=== PATIENT | female | born 1955 | race African-American/Black ===

== ENCOUNTER 2020-04-20 08:27 | Emergency (ER) | payer MEDICARE ==
[2020-04-20] MEDS ORDERED: Sodium Chloride 0.9% 2.5 ML Syringe FLUSH PRN (08:35)
[2020-04-20] MEDS ORDERED: Sodium Chloride 0.9% 10 ML Syringe FLUSH PRN (08:35)
[2020-04-20] MEDS ORDERED: Aspirin 81 MG Tab.Chew PO ONE (08:37)
--- NOTE | 2020-04-20 08:43 | EDM.PDOC ---
ED HPI GENERAL MEDICAL PROBLEM - General Chief Complaint: Chest Pain Stated Complaint: chest pain Time Seen by Provider: 04/20/20 08:30 - History of Present Illness INITIAL COMMENTS - FREE TEXT/NARRATIVE: History of present illness: [] Is a 64-year-old woman reports chest pain. She said it severe and associated with shortness of breath. It got intermittently slightly better with an inhaler. Is been going on for 2 weeks. She has been bothered by chest pain and shortness of breath in the past. Her primary condition is a lung condition secondary to smoking. She still smokes. The patient's not diabetic but is treated for hypertension. She is not treated for cholesterol. The patient's chest pain is quite bothersome and intermittent. It gets better with inhaler. Exertion does not make it worse. Review of systems: As per history of present illness and below otherwise all systems reviewed and negative. Past medical history: As per history of present illness and as reviewed below otherwise noncontributory. Surgical history: As per history of present illness and as reviewed below otherwise noncontributory. Social history: No reported history of drug or alcohol abuse. Family history: As per history of present illness and as reviewed below otherwise noncontributory. Physical exam: Constitutional -is obese but otherwise well developed, well-nourished and in mild acute distress HEENT - normocephalic, no evidence of trauma - external nose and mouth normal - no mass in neck and no JVD - mucosae moist EYES - full EOM, PERRL, no icterus - no evidence of inflammation, injection, or drainage Respiratory -no respiratory distress, equal bilateral expansion, lungs clear to auscultation and no abnormal lung sounds. Space breath sounds in both bases. Cardiovascular - Regular Rhythm with S1 and S2 appreciated and no murmur, gallop or rub. GI - abdomen soft without distension or organomegaly - normal bowel sounds - no guard or rebound Musculoskeletal no gross deformity of long bones or joints - no tenderness, swelling or edema Neurologic - Alert and oriented times four - CN II-XII grossly intact - motor sensory and coordination symmetrically normal Psychiatric - appropriate mood and affect with normal thought content Hematologic - No petechiae or purpura - mucosa appropriate color and sclera not pale - normal nail bed color and refill Integument - no rash or evidence of trauma - normal turgor Diagnostics: [] Therapeutics: [] Impression: [] Plan: [] Definitive disposition and diagnosis as appropriate pending reevaluation and review of above. Chest Pain Score (Numeric/FACES): 7 - Related Data Allergies Allergy/AdvReac Type Severity Reaction Status Date / Time Penicillins Allergy Hives Verified 04/20/20 08:43 Home Meds: Home Meds Desvenlafaxine Succinate [Desvenlafaxine Succinate ER] 100 mg PO DAILY 04/20/20 [History] Esomeprazole Magnesium 40 mg PO DAILY 04/20/20 [History] Gabapentin [Neurontin] 600 mg PO TID 04/20/20 [History] Hydrocodone/Acetaminophen [Hydrocodone-Acetamin 10-325 mg] 1 tab PO QID PRN 04/20/20 [History] Irbesartan/Hydrochlorothiazide [Irbesartan-Hctz 300-12.5 mg Tb] 1 tab PO DAILY 04/20/20 [History] amLODIPine Besylate [Amlodipine Besylate] 10 mg PO DAILY 04/20/20 [History] busPIRone [Buspar] 10 mg PO DAILY 04/20/20 [History] estradioL [Estradiol] 1 mg PO DAILY 04/20/20 [History] hydrOXYzine HCL [Hydroxyzine HCl] 25 mg PO TID 04/20/20 [History] predniSONE [Prednisone] 60 mg PO DAILY #21 tablet 04/20/20 [Rx] ED ROS GENERAL - Review of Systems Review Of Systems: Comprehensive ROS is negative, except as noted in HPI. ED EXAM, GENERAL - Physical Exam Exam: See Below Free Text/Narrative:: My physical exam is in the HPI #1 Interpretation EKG Interpretation Comments: G performed at 8:28 AM shows a sinus rhythm with a heart rate of 93 QT of 469 QRS axis of 53 normal QRS with nonspecific lateral ST changes. LA interval is 160. These are minimal and there is no prior for comparison impression no acute injury there is no prior for comparison. Impression no acute injury Course - Vital Signs Text/Narrative:: 9:08 AM the patient's breathing better. She has no chest pain at this time. She is comfortable. She did get inhalation treatments given by her daughter before she arrived. My interpretation of the chest x-ray is that it is unremarkable. 1:16 AM patient still feels good. She has a nebulizer and medicine at home. She responded nicely to the treatments this morning and has had intermittent subacute chest pain associated with her shortness of breath with her bronchitis. Plan to discharge on steroids. Last Recorded V/S: Last Vital Signs Temp 36.4 C 04/20/20 08:35 Pulse 72 04/20/20 10:03 Resp 17 04/20/20 10:03 BP 131/90 04/20/20 10:03 Pulse Ox 94 L 04/20/20 10:03 - Orders/Labs/Meds Orders: Active Orders 24 hr Category Date Time Status EKG Documentation Completion [RC] AM Care 04/20/20 08:35 Active Sodium Chloride 0.9% [Saline Flush] Med 04/20/20 08:35 Active 10 ml FLUSH ASDIRECTED PRN Sodium Chloride 0.9% [Saline Flush] Med 04/20/20 08:35 Active 2.5 ml FLUSH ASDIRECTED PRN Saline Lock Insert [OM.PC] Stat Oth 04/20/20 08:35 Ordered Labs: Laboratory Tests 04/20/20 04/20/20 04/20/20 Range/Units 08:40 08:40 09:08 WBC 10.67 (4.0-11.0) K/uL RBC 4.68 (4.30-5.90) M/uL Hgb 14.5 (12.0-16.0) g/dL Hct 42.2 (36.0-46.0) % MCV 90.2 (80.0-98.0) fL MCH 31.0 (27.0-32.0) pg MCHC 34.4 (31.0-37.0) g/dL RDW Std Deviation 44.2 (28.0-62.0) fl RDW Coeff of Dian 13 (11.0-15.0) % Plt Count 416 H (150-400) K/uL MPV 8.80 (7.40-12.00) fL Neut % (Auto) 66.2 (48.0-80.0) % Lymph % (Auto) 25.9 (16.0-40.0) % Porter % (Auto) 6.3 (0.0-15.0) % Eos % (Auto) 1.2 (0.0-7.0) % Baso % (Auto) 0.4 (0.0-1.5) % Neut # (Auto) 7.1 H (1.4-5.7) K/uL Lymph # (Auto) 2.8 H (0.6-2.4) K/uL Porter # (Auto) 0.7 (0.0-0.8) K/uL Eos # (Auto) 0.1 (0.0-0.7) K/uL Baso # (Auto) 0.0 (0.0-0.1) K/uL Nucleated RBC % 0.0 /100WBC Nucleated RBCs # 0 K/uL Sodium 136 (136-145) mmol/L Potassium 3.6 (3.5-5.1) mmol/L Chloride 100 (98-107) mmol/L Carbon Dioxide 27.8 (21.0-32.0) mmol/L BUN 8 (7.0-18.0) mg/dL Creatinine 1.0 (0.6-1.0) mg/dL Est Cr Clr Drug Dosing 46.40 mL/min Estimated GFR (MDRD) > 60.0 ml/min Glucose 114 H (74-106) mg/dL Calcium 9.9 (8.5-10.1) mg/dL Total Bilirubin 0.4 (0.2-1.0) mg/dL AST 15 (15-37) IU/L ALT 18 (14-63) IU/L Alkaline Phosphatase 87 (46-116) U/L Troponin I < 0.050 (0.000-0.056) ng/mL Total Protein 8.0 (6.4-8.2) g/dL Albumin 3.8 (3.4-5.0) g/dL Globulin 4.2 H (2.6-4.0) g/dL Albumin/Globulin Ratio 0.9 (0.9-1.6) SARS-CoV-2 RNA (MARGARET) NEGATIVE (NEGATIVE) Departure - Departure Time of Disposition: 10:17 Disposition: Home, Self-Care 01 Condition: Good Clinical Impression: Acute bronchitis - Discharge Information Prescriptions: predniSONE [Prednisone] 60 mg PO DAILY #21 tablet Instructions: Acute Bronchitis, Adult, [id number] Referrals: Will Reese MD [Primary Care Provider] - Forms: ED Department Discharge Additional Inst[facility]: [facility] Care [address] [place] [id number] [facility] [address] [place] [id number] The following information is given to patients seen in the emergency department who are being discharged to home. This information is to outline your options for follow-up care. We provide all patients seen in our emergency department with a follow-up referral. The need for follow-up, as well as the timing and circumstances, are variable depending upon the specifics of your emergency department visit. If you don't have a primary care physician on staff, we will provide you with a referral. We always advise you to contact your personal physician following an emergency department visit to inform them of the circumstance of the visit and for follow-up with them and/or the need for any referrals to a consulting specialist. The emergency department will also refer you to a specialist when appropriate. This referral assures that you have the opportunity for follow-up care with a specialist. All of these measure are taken in an effort to provide you with optimal care, which includes your follow-up. Under all circumstances we always encourage you to contact your private physician who remains a resource for coordinating your care. When calling for follow-up care, please make the office aware that this follow-up is from your recent emergency room visit. If for any reason you are refused follow-up, please contact the [facility] Emergency Department at and asked to speak to the emergency department charge nurse. Sepsis Event Note (ED) - Evaluation Sepsis Screening Result: Possible Sepsis Risk - Focused Exam Vital Signs: Vital Signs Temp Pulse Resp BP Pulse Ox 04/20/20 10:03 72 17 131/90 94 L 04/20/20 09:33 78 18 136/86 94 L 04/20/20 09:03 74 121/84 95 04/20/20 08:48 81 17 121/88 94 L 04/20/20 08:35 36.4 C 94 24 H 143/83 H 98 - My Orders Last 24 Hours: My Active Orders 04/20/20 08:35 EKG Documentation Completion [RC] AM Sodium Chloride 0.9% [Saline Flush] 10 ml FLUSH ASDIRECTED PRN Sodium Chloride 0.9% [Saline Flush] 2.5 ml FLUSH ASDIRECTED PRN Saline Lock Insert [OM.PC] Stat - Assessment/Plan Last 24 Hours: My Active Orders 04/20/20 08:35 EKG Documentation Completion [RC] AM Sodium Chloride 0.9% [Saline Flush] 10 ml FLUSH ASDIRECTED PRN Sodium Chloride 0.9% [Saline Flush] 2.5 ml FLUSH ASDIRECTED PRN Saline Lock Insert [OM.PC] Stat
--- NOTE | 2020-04-20 09:03 | CR ---
INDICATION: Chest pain with dyspnea TECHNIQUE: Chest 1 view COMPARISON: None FINDINGS: Cardiovascular and mediastinum: Heart size and vasculature are normal in caliber and appearance. Lungs and pleural spaces: Lungs are clear. No sign of infiltrate or mass. No sign of pleural effusion. No pneumothorax. Bones and soft tissues: No significant findings. IMPRESSION: No acute or significant findings. Dictated by Domenic Kramer MD @ Apr 20 2020 9:02AM Signed by Dr. Domenic Kramer @ Apr 20 2020 9:03AM
[2020-04-20] MEDS ORDERED: predniSONE 20 MG Tab PO ONE (09:07)
[2020-04-20 09:28] LABS: BLOOD UREA NITROGEN,BUN 8 mg/dL (7.0-18.0); CARBON DIOXIDE,CO2 27.8 mmol/L (21.0-32.0); CHLORIDE,CL 100 mmol/L (98-107); GLUCOSE RANDOM 114 mg/dL (74-106); POTASSIUM,K 3.6 mmol/L (3.5-5.1); SODIUM,NA 136 mmol/L (136-145)
== END 2020-04-20 10:24 | disposition home or self-care (01) ==
LOC: MW.ED 08:27
DX: J20.9 Acute bronchitis, unspecified (principal); Z20.822 Contact with and (suspected) exposure to COVID-19; Z88.0 Allergy status to penicillin; Z79.899 Other long term (current) drug therapy
CPT/HCPCS: 36415; 71045; 80053; 84484; 85025; 93005; 99285; A9270; U0002; 93010; 99283

== ENCOUNTER 2020-07-08 10:36 | Emergency (ER) | payer MEDICARE ==
--- NOTE | 2020-07-08 10:51 | EDM.PDOC ---
ED HPI GENERAL MEDICAL PROBLEM - General Stated Complaint: TINGLING AND NUMBNESS IN BOTH ARMS AND NECK Time Seen by Provider: 07/08/20 10:43 Source of Information: Reports: Patient History Limitations: Reports: No Limitations - History of Present Illness INITIAL COMMENTS - FREE TEXT/NARRATIVE: HISTORY AND PHYSICAL: History of present illness: Patient is a 64-year-old female who presents to the emergency room with multiple complaints that have been intermittent and persistent over the past 3+ months. She states she has had some neck pain and stiffness which she describes as muscle spasms which is tight for her to turn her head side to side and up and down. She does have intermittent tingling sensation to bilateral hands which she believes is coming from her neck problem and/or chronic back pain. She also has had increased shortness of breath with productive cough, worse in the morning. She recently quit smoking, thinking this would help her symptoms. When she wakes up with the symptoms she does use her prescribed inhalers although this does help temporarily she feels by afternoon her shortness of breath has returned. She has been evaluated and worked up by her primary care provider Dr. Reese and in the emergency room on 04/20/2020. Patient denies any fever, chills, headache, change in vision, syncope or near syncope. Denies any chest pain or hemoptysis. Denies any urinary or fecal incontinence. Denies any one-sided weakness or loss of sensation. She denies any abdominal pain, nausea, vomiting, diarrhea, constipation or dysuria. Has not noted any blood in urine or stool. Patient has been eating and drinking appropriately. Patient has a past medical history of hypertension Review of systems: As per history of present illness and below otherwise all systems reviewed and negative. Past medical history: As per history of present illness and as reviewed below otherwise noncontributory. Surgical history: As per history of present illness and as reviewed below otherwise noncontributory. Social history: See social history for further information Family history: As per history of present illness and as reviewed below otherwise noncontributory. Physical exam: General: Well developed and well nourished. Alert and orientated x 3. Nontoxic in appearance and in no acute distress. Vital signs are stable and have been reviewed by me. Nursing notes were reviewed. HEENT: Atraumatic, normocephalic, pupils equal and reactive bilaterally, negative for conjunctival pallor or scleral icterus, mucous membranes moist, TMs normal bilaterally, throat clear, neck supple, nontender, trachea midline. No drooling or trismus noted. No meningeal signs/nuchal rigidity. No hot potato voice noted. Lungs: Clear to auscultation bilaterally. No wheezes, rales, or rhonchi. Chest nontender. Normal work of breathing, no accessory muscles used. Heart: S1S2, regular rate and rhythm without overt murmur, gallops, or rubs. No JVD. No peripheral edema Abdomen: Soft, nondistended, nontender. Normoactive bowel sounds. Negative for masses or costovertebral tenderness. Pelvis: Stable nontender. C-spine/Back: No pinpoint vertebral tenderness upon palpation. No crepitus, rebeca p-offs or obvious deformities. Muscle tension/tight to sternocleidomastoid and trapezius muscles bilaterally. Patient is ambulatory into the emergency room without difficulty or deficit. Able to rock back on heels and walk on toes. Denies any urinary or fecal incontinence. Denies any numbness or saddle paresthesia. No concerns of serious infection, fracture or cord compression, or cauda equina syndrome. Deep tendon reflexes brisk bilaterally. Skin: Intact, warm, dry. No lesions or rashes noted. Hematologic: No petechiae or purpra. Mucosa appropriate color and normal nail bed color and refill. Extremities: Atraumatic, moves all extremities per self without difficulty or deficits, negative for cords or calf pain. Neurovascular unremarkable. Neuro: Awake, alert, oriented. Cranial nerves II through XII unremarkable. Cerebellum unremarkable. Motor and sensory unremarkable throughout. Exam nonfocal. Psychiatric: Mood and affect are appropriate. Normal thought process. Answering questions appropriately. Notes: *This patient was seen and evaluated during the 2019 SARS-CoV-2 novel coronavirus pandemic period. Community viral transmission is ongoing at time of this encounter and the emergency department is operating under pandemic response procedures. Patient is a 64-year-old female who presents to the emergency room with complaints of paresthesia of the bilateral hands, muscular neck pain, shortness of breath and cough x3 months. She has been seen by her primary care provider Dr. Reese and in the emergency room with normal findings. During my physical exam the patient is tearful stating she is frustrated that she does not have answers for her symptoms. She does mention that "this could all be stress" and breaks down crying. I did reassure her that her physical exam is relatively unremarkable although I do appreciate her neck being very stiff and tight with exam and probably would benefit from a muscle relaxer. We will do a cardiac work-up and imaging of the cervical neck. Patient states her lumbar back pain is chronic and has had imaging and is being treated with gabapentin by her primary care provider. GCS 15, NIH 0. Patient does have a leukocytosis without source. Chest x-ray is unremarkable. CT of the cervical spine shows moderate severe degenerative changes of the cervical spine worse at C5-C6 and C6-C7 levels. It is recommended for MRI to characterize spinal canal impingement. There is no evidence of fracture. I have talked with the patient about today's findings, in addition to providing specific details for plan of care. Reassessment at the time of disposition demonstrates that the patient is in no acute distress. The patient is stable for discharge, counseling was provided and we discussed in great detail signs and symptoms that would prompt them to return to the Emergency Department. Medication, follow up and supportive care measures were reviewed and discussed. Voices understanding and is agreeable to plan of care. Denies any further questions or concerns at this time. Diagnostics: CBC, CMP, UA, chest x-ray, troponin, EKG, cervical spine CT Therapeutics: Toradol, Flexeril Prescription: Flexeril, Prednisone Impression: Muscle strain, neck Plan: 1. You were evaluated today on an emergent basis. Your CT of your cervical spine shows moderate severe degenerative changes of the cervical spine worse at C5-C6 and C6-C7 levels. It is recommended for MRI to characterize spinal canal impingement. Please follow up with Dr Reese to have this ordered/reviewed. 2. You can alternate Tylenol and ibuprofen as needed for pain and fever management. 3. We encourage you to follow up with your primary care provider and/or recommended specialist in the next few days for re-evaluation and further care/management. 4. If your symptoms should worsen, new symptoms develop or any of the signs and symptoms we discussed should arise please return to the emergency room or call 911 (if needed). Definitive disposition and diagnosis as appropriate pending reevaluation and review of above. Ribs/Shoulders Pain Score (Numeric/FACES): 8 - Related Data Allergies Allergy/AdvReac Type Severity Reaction Status Date / Time Penicillins Allergy Hives Verified 07/08/20 11:05 Home Meds: Home Meds Desvenlafaxine Succinate [Desvenlafaxine Succinate ER] 100 mg PO DAILY 04/20/20 [History] Esomeprazole Magnesium 40 mg PO DAILY 04/20/20 [History] Gabapentin [Neurontin] 600 mg PO TID 04/20/20 [History] Hydrocodone/Acetaminophen [Hydrocodone-Acetamin 10-325 mg] 1 tab PO QID PRN 04/20/20 [History] Irbesartan/Hydrochlorothiazide [Irbesartan-Hctz 300-12.5 mg Tb] 1 tab PO DAILY 04/20/20 [History] amLODIPine Besylate [Amlodipine Besylate] 10 mg PO DAILY 04/20/20 [History] busPIRone [Buspar] 10 mg PO DAILY 04/20/20 [History] estradioL [Estradiol] 1 mg PO DAILY 04/20/20 [History] hydrOXYzine HCL [Hydroxyzine HCl] 25 mg PO TID 04/20/20 [History] predniSONE [Prednisone] 60 mg PO DAILY #21 tablet 04/20/20 [Rx] Social & Family History - Family History Family Medical History: No Pertinent Family History ED ROS GENERAL - Review of Systems Review Of Systems: Comprehensive ROS is negative, except as noted in HPI. ED EXAM, GENERAL - Physical Exam Exam: See Below (See dictation) Course - Vital Signs Last Recorded V/S: Last Vital Signs Temp 97.6 F 07/08/20 11:05 Pulse 86 07/08/20 12:18 Resp 16 07/08/20 11:38 BP 117/70 07/08/20 12:18 Pulse Ox 95 07/08/20 12:18 - Orders/Labs/Meds Orders: Active Orders 24 hr Category Date Time Status EKG Documentation Completion [RC] STAT Care 07/08/20 11:15 Active CORONAVIRUS COVID-19 MARGARET [MOLEC] Stat Lab 07/08/20 11:15 Ordered Labs: Laboratory Tests 07/08/20 07/08/20 07/08/20 Range/Units 11:40 11:40 11:40 WBC 15.67 H (4.0-11.0) K/uL RBC 4.31 (4.30-5.90) M/uL Hgb 13.2 (12.0-16.0) g/dL Hct 39.0 (36.0-46.0) % MCV 90.5 (80.0-98.0) fL MCH 30.6 (27.0-32.0) pg MCHC 33.8 (31.0-37.0) g/dL RDW Std Deviation 45.6 (28.0-62.0) fl RDW Coeff of Dian 14 (11.0-15.0) % Plt Count 355 (150-400) K/uL MPV 8.80 (7.40-12.00) fL Neut % (Auto) 81.2 H (48.0-80.0) % Lymph % (Auto) 12.8 L (16.0-40.0) % Pender % (Auto) 5.2 (0.0-15.0) % Eos % (Auto) 0.6 (0.0-7.0) % Baso % (Auto) 0.2 (0.0-1.5) % Neut # (Auto) 12.7 H (1.4-5.7) K/uL Lymph # (Auto) 2.0 (0.6-2.4) K/uL Pender # (Auto) 0.8 (0.0-0.8) K/uL Eos # (Auto) 0.1 (0.0-0.7) K/uL Baso # (Auto) 0.0 (0.0-0.1) K/uL Nucleated RBC % 0.0 /100WBC Nucleated RBCs # 0 K/uL D-Dimer, Quantitative < 0.19 (0.0-0.50) mg/L FEU Sodium 135 L (136-145) mmol/L Potassium 3.4 L (3.5-5.1) mmol/L Chloride 98 (98-107) mmol/L Carbon Dioxide 27.1 (21.0-32.0) mmol/L BUN 9 (7.0-18.0) mg/dL Creatinine 0.9 (0.6-1.0) mg/dL Est Cr Clr Drug Dosing 51.55 mL/min Estimated GFR (MDRD) > 60.0 ml/min Glucose 121 H (74-106) mg/dL Calcium 9.6 (8.5-10.1) mg/dL Total Bilirubin 0.5 (0.2-1.0) mg/dL AST 14 L (15-37) IU/L ALT 13 L (14-63) IU/L Alkaline Phosphatase 85 (46-116) U/L Troponin I < 0.050 (0.000-0.056) ng/mL Total Protein 7.9 (6.4-8.2) g/dL Albumin 3.5 (3.4-5.0) g/dL Globulin 4.4 H (2.6-4.0) g/dL Albumin/Globulin Ratio 0.8 L (0.9-1.6) Urine Color Urine Appearance Urine pH (5.0-8.0) Ur Specific [place] (1.001-1.035) Urine Protein (NEGATIVE) mg/dL Urine Glucose (UA) (NEGATIVE) mg/dL Urine Ketones (NEGATIVE) mg/dL Urine Occult Blood (NEGATIVE) Urine Nitrite (NEGATIVE) Urine Bilirubin (NEGATIVE) Urine Urobilinogen (<2.0) EU/dL Ur Leukocyte Esterase (NEGATIVE) 07/08/20 Range/Units 13:03 WBC (4.0-11.0) K/uL RBC (4.30-5.90) M/uL Hgb (12.0-16.0) g/dL Hct (36.0-46.0) % MCV (80.0-98.0) fL MCH (27.0-32.0) pg MCHC (31.0-37.0) g/dL RDW Std Deviation (28.0-62.0) fl RDW Coeff of Dian (11.0-15.0) % Plt Count (150-400) K/uL MPV (7.40-12.00) fL Neut % (Auto) (48.0-80.0) % Lymph % (Auto) (16.0-40.0) % Pender % (Auto) (0.0-15.0) % Eos % (Auto) (0.0-7.0) % Baso % (Auto) (0.0-1.5) % Neut # (Auto) (1.4-5.7) K/uL Lymph # (Auto) (0.6-2.4) K/uL Pender # (Auto) (0.0-0.8) K/uL Eos # (Auto) (0.0-0.7) K/uL Baso # (Auto) (0.0-0.1) K/uL Nucleated RBC % /100WBC Nucleated RBCs # K/uL D-Dimer, Quantitative (0.0-0.50) mg/L FEU Sodium (136-145) mmol/L Potassium (3.5-5.1) mmol/L Chloride (98-107) mmol/L Carbon Dioxide (21.0-32.0) mmol/L BUN (7.0-18.0) mg/dL Creatinine (0.6-1.0) mg/dL Est Cr Clr Drug Dosing mL/min Estimated GFR (MDRD) ml/min Glucose (74-106) mg/dL Calcium (8.5-10.1) mg/dL Total Bilirubin (0.2-1.0) mg/dL AST (15-37) IU/L ALT (14-63) IU/L Alkaline Phosphatase (46-116) U/L Troponin I (0.000-0.056) ng/mL Total Protein (6.4-8.2) g/dL Albumin (3.4-5.0) g/dL Globulin (2.6-4.0) g/dL Albumin/Globulin Ratio (0.9-1.6) Urine Color YELLOW Urine Appearance CLEAR Urine pH 6.0 (5.0-8.0) Ur Specific [place] 1.015 (1.001-1.035) Urine Protein NEGATIVE (NEGATIVE) mg/dL Urine Glucose (UA) NEGATIVE (NEGATIVE) mg/dL Urine Ketones NEGATIVE (NEGATIVE) mg/dL Urine Occult Blood NEGATIVE (NEGATIVE) Urine Nitrite NEGATIVE (NEGATIVE) Urine Bilirubin NEGATIVE (NEGATIVE) Urine Urobilinogen 0.2 (<2.0) EU/dL Ur Leukocyte Esterase NEGATIVE (NEGATIVE) Meds: Medications Discontinued Medications Generic Name Dose Route Start Last Admin Trade Name Freq PRN Reason Stop Dose Admin Cyclobenzaprine HCl 10 mg 07/08/20 11:54 07/08/20 12:16 Cyclobenzaprine 10 Mg Tab PO 07/08/20 11:55 10 mg ONETIME ONE Administration Ketorolac Tromethamine 30 mg 07/08/20 11:52 07/08/20 12:08 Ketorolac 30 Mg/Ml Sdv IM 07/08/20 11:53 Not Given NOW STA Ketorolac Tromethamine 30 mg 07/08/20 11:54 07/08/20 12:16 Ketorolac 30 Mg/Ml Sdv IVPUSH 07/08/20 11:55 30 mg ONETIME ONE Administration Orphenadrine Citrate 60 mg 07/08/20 11:52 07/08/20 12:08 Orphenadrine 60 Mg/2 Ml Inj IM 07/08/20 11:53 Not Given ONETIME ONE Departure - Departure Time of Disposition: 14:00 Disposition: Home, Self-Care 01 Clinical Impression: Neck muscle strain Qualifiers: Encounter type: initial encounter Qualified Code(s): S16.1XXA - Strain of muscle, fascia and tendon at neck level, initial encounter - Discharge Information Instructions: Muscle Strain, [id number] Referrals: Will Reese MD [Primary Care Provider] - Additional Instructions: The following information is given to patients seen in the emergency department who are being discharged to home. This information is to outline your options for follow-up care. We provide all patients seen in our emergency department with a follow-up referral. The need for follow-up, as well as the timing and circumstances, are variable depending upon the specifics of your emergency department visit. If you don't have a primary care physician on staff, we will provide you with a referral. We always advise you to contact your personal physician following an emergency department visit to inform them of the circumstance of the visit and for follow-up with them and/or the need for any referrals to a consulting specialist. The emergency department will also refer you to a specialist when appropriate. This referral assures that you have the opportunity for follow-up care with a specialist. All of these measure are taken in an effort to provide you with optimal care, which includes your follow-up. Under all circumstances we always encourage you to contact your private physician who remains a resource for coordinating your care. When calling for follow-up care, please make the office aware that this follow-up is from your recent emergency room visit. If for any reason you are refused follow-up, please contact the [facility] Emergency Department at and asked to speak to the emergency department charge nurse. [facility] [address] [place] [address] [facility] [address] [place] [address] Thank you for choosing the [facility] emergency department in [place] for your medical needs today. It was a pleasure caring for you. Today you were seen in the emergency department for neck pain, bilateral hand tingling and shortness of breath 1. You were evaluated today on an emergent basis. Your CT of your cervical spine shows moderate severe degenerative changes of the cervical spine worse at C5-C6 and C6-C7 levels. It is recommended for MRI to characterize spinal canal impingement. Please follow up with Dr Reese to have this ordered/reviewed. 2. You can alternate Tylenol and ibuprofen as needed for pain and fever management. 3. We encourage you to follow up with your primary care provider and/or recommended specialist in the next few days for re-evaluation and further care/management. 4. If your symptoms should worsen, new symptoms develop or any of the signs and symptoms we discussed should arise please return to the emergency room or call 911 (if needed). Sepsis Event Note (ED) - Focused Exam Vital Signs: Vital Signs Temp Pulse Resp BP Pulse Ox 07/08/20 12:18 86 117/70 95 07/08/20 11:38 87 16 109/73 94 L 07/08/20 11:05 97.6 F 90 18 129/94 H 95 - My Orders Last 24 Hours: My Active Orders 07/08/20 11:15 EKG Documentation Completion [RC] STAT CORONAVIRUS COVID-19 MARGARET [MOLEC] Stat - Assessment/Plan Last 24 Hours: My Active Orders 07/08/20 11:15 EKG Documentation Completion [RC] STAT CORONAVIRUS COVID-19 MARGARET [MOLEC] Stat
--- NOTE | 2020-07-08 11:20 | PCM.EKG ---
#1 Interpretation EKG Date: 07/08/20 Time: 11:14 Rhythm: NSR Rate (Beats/Min): 81 [place]: Normal P-Wave: Present QRS: Normal ST-T: Normal QT: Normal DE/PQ Interval: 119 Comparison: NA - No Prior EKG EKG Interpretation Comments: normal EKG
[2020-07-08] MEDS ORDERED: Ketorolac 30 MG/ML SDV IM STA (11:52)
[2020-07-08] MEDS ORDERED: Orphenadrine 60 MG/2 ML Inj IM ONE (11:52)
[2020-07-08] MEDS ORDERED: Ketorolac 30 MG/ML SDV IVPUSH ONE (11:54)
[2020-07-08] MEDS ORDERED: Cyclobenzaprine 10 MG Tab PO ONE (11:54)
[2020-07-08 12:18] LABS: BLOOD UREA NITROGEN,BUN 9 mg/dL (7.0-18.0); CARBON DIOXIDE,CO2 27.1 mmol/L (21.0-32.0); CHLORIDE,CL 98 mmol/L (98-107); GLUCOSE RANDOM 121 mg/dL (74-106); POTASSIUM,K 3.4 mmol/L (3.5-5.1); SODIUM,NA 135 mmol/L (136-145)
--- NOTE | 2020-07-08 12:32 | CR ---
Indication: Numbness down arms for several months Comparison: Single view chest April 20, 2020 Technique: Single AP view chest Findings: There is hyperinflation and chronic interstitial change. There is no focal consolidation, effusion, or pneumothorax. The cardiomediastinal silhouette is within normal limits. The bony thorax is grossly intact. Impression: No acute cardiopulmonary abnormality. Dictated by Adam Gurrola MD @ 07/08/2020 12:30:[address] Adam Gurrola @ Jul 08 2020 12:30PM
--- NOTE | 2020-07-08 12:36 | CT ---
Indication: Numbness down the arms going on for months Technique: Volumetric multidetector CT images of the cervical spine were obtained without the administration of IV contrast. Comparison: None available. Findings: The cervical vertebral body heights are grossly maintained with minimal endplate Schmorl`s defects. There is straightening of the normal cervical lordosis without evidence of significant spondylolisthesis. There is no displaced fracture or dislocation. There is moderate to severe degenerative disc disease with disc osteophyte complex and disc height loss worst at C5-C6 and C6-C7. There is moderate to severe facet arthrosis. There is mild biapical pleural thickening with somewhat ground-glass nodularity in the peripheral right lung apex. There is air-trapping seen within the peripheral left upper lobe. Impression: Moderate severe degenerative changes of the cervical spine worst at the C5-C6 and C6-C7 levels for which further evaluation with MRI is recommended for improved characterization of spinal canal impingement. No evidence of displaced fracture. Please note that all CT scans at this facility use dose modulation, iterative reconstruction, and/or weight-based dosing when appropriate to reduce radiation dose to as low as reasonably achievable. Dictated by Adam Gurrola MD @ 07/08/2020 12:33:[address] Adam Gurrola @ Jul 08 2020 12:33PM
== END 2020-07-08 14:14 | disposition home or self-care (01) ==
LOC: MW.ED 10:36
DX: S16.1XXA Strain of muscle, fascia and tendon at neck level, initial encounter (principal); Z88.0 Allergy status to penicillin; Z79.899 Other long term (current) drug therapy; X58.XXXA Exposure to other specified factors, initial encounter
CPT/HCPCS: 36415; 71045; 72125; 80053; 81003; 84484; 85025; 85379; 93005; 96374; 99285; A9270; J1885; 93010; 99283

== ENCOUNTER 2020-07-19 06:30 | Day surgery (SDC) | payer MEDICARE ==
[~2020-07-19 06:30] MED LIST: Lactated Ringers 1,000 ML IV SCH
[2020-07-19] MEDS ORDERED: fentaNYL 100 MCG/2 ML SDV ONE (06:53)
[2020-07-19] MEDS ORDERED: Propofol 200 MG/20 ML SDV ONE ×2 (06:53→08:58)
[2020-07-19] MEDS ORDERED: Midazolam 1 MG/ML 2 ML SDV ONE (06:53)
[2020-07-19] MEDS ORDERED: Lidocaine 2% 5 ML SDV ONE (06:54)
--- NOTE | 2020-07-19 07:51 | PCM.PREANE ---
Preanesthetic Assessment - Anesthesia/Transfusion/Family Hx Anesthesia History: Prior Anesthesia Without Reaction Family History of Anesthesia Reaction: No Transfusion History: No Prior Transfusion(s) - Review of Systems Pulmonary: Shortness of Breath (Daily. Uses inhalers) Cardiovascular: No Symptoms Gastrointestinal: Other (lots of phlegm) - Physical Assessment NPO Status Date: 07/18/20 NPO Status Time: 18:00 Vital Signs: Last Vital Signs Temp 35.4 C L 07/19/20 06:47 Pulse 81 07/19/20 06:47 Resp 16 07/19/20 06:47 BP 112/70 07/19/20 06:47 Pulse Ox 99 07/19/20 06:47 Height: 1.6 m Weight: 77.111 kg ASA Class: 2 Mental Status: Alert & Oriented x3 Airway Class: Mallampati = 1 (chronic back, bilateral shoulder, leg pain. Takes hydrocodone sometimes every 4 hours daily) Dentition: Reports: Edentulous ROM/Head Extension: Full Cardiovascular: Regular Rate - Allergies Allergies/Adverse Reactions: Allergies Allergy/AdvReac Type Severity Reaction Status Date / Time Penicillins Allergy Hives Verified 07/13/20 09:11 - Blood Blood Available: No - Anesthesia Plan Med Last Dose Date: 07/19/20 (bp med only today) - Acknowledgements Anesthesia Type Planned: MAC Pt an Appropriate Candidate for the Planned Anesthesia: Yes Alternatives and Risks of Anesthesia Discussed w Pt/Guardian: Yes Pt/Guardian Understands and Agrees with Anesthesia Plan: Yes PreAnesthesia Questionnaire HEENT History: Reports: Allergic Rhinitis, Other (See Below) Other HEENT History: wears glasses, has dentures but does not wear them Cardiovascular History: Reports: Hypertension Respiratory History: Reports: Bronchitis, Recurrent, SOB, Other (See Below) Other Respiratory History: 47 yr history of smoking, occasional SOB, has prescribed inhalers, denies any diagnosis of COPD or asthma Gastrointestinal History: Reports: Colon Polyp, GERD Genitourinary History: Reports: None [employer] History: Reports: Musculoskeletal History: Reports: Arthritis, Back Pain, Chronic Neurological History: Reports: Neuropathy, Peripheral Psychiatric History: Reports: Anxiety, Depression Endocrine/Metabolic History: Reports: Obesity/BMI 30+ Hematologic History: Reports: None Immunologic History: Reports: None Oncologic (Cancer) History: Reports: None Dermatologic History: Reports: None - Infectious Disease History Infectious Disease History: Reports: None - Past Surgical History Head Surgeries/Procedures: Reports: None HEENT Surgical History: Reports: None Cardiovascular Surgical History: Reports: None Respiratory Surgical History: Reports: None GI Surgical History: Reports: Colonoscopy Female Surgical History: Reports: Hysterectomy, Salpingo-Oophorectomy Endocrine Surgical History: Reports: None Neurological Surgical History: Reports: None Musculoskeletal Surgical History: Reports: Shoulder Surgery Other Musculoskeletal Surgeries/Procedures:: right RTCR Oncologic Surgical History: Reports: None Dermatological Surgical History: Reports: None - SUBSTANCE USE Tobacco Use Status *Q: Former Tobacco User Tobacco Use Within Last Twelve Months: Cigarettes - HOME MEDS Home Medications: Home Meds Desvenlafaxine Succinate [Desvenlafaxine Succinate ER] 100 mg PO DAILY 04/20/20 [History] Gabapentin [Neurontin] 600 mg PO TID 04/20/20 [History] Hydrocodone/Acetaminophen [Hydrocodone-Acetamin 10-325 mg] 1 tab PO QID PRN 04/20/20 [History] Irbesartan/Hydrochlorothiazide [Irbesartan-Hctz 300-12.5 mg Tb] 1 tab PO DAILY 04/20/20 [History] amLODIPine Besylate [Amlodipine Besylate] 10 mg PO DAILY 04/20/20 [History] busPIRone [Buspar] 10 mg PO DAILY 04/20/20 [History] estradioL [Estradiol] 1 mg PO DAILY 04/20/20 [History] hydrOXYzine HCL [Hydroxyzine HCl] 25 mg PO TID PRN 04/20/20 [History] Albuterol Sulfate [Albuterol Sulfate HFA] 1 puff INH Q4H PRN 07/08/20 [History] Budesonide/Formoterol [Symbicort 160-4.5 MCG] 2 puff INH BID 07/08/20 [History] Cetirizine HCl 10 mg PO DAILY 07/08/20 [History] buPROPion HCL [Bupropion Xl] 150 mg PO DAILY 07/08/20 [History] Calcium Carbonate [Tums] 1 tab.chew CHEW ASDIRECTED PRN 07/13/20 [History] Cholecalciferol (Vitamin D3) [Vitamin D3] 2,000 units PO DAILY 07/13/20 [History] - CURRENT (IN HOUSE) MEDS Current Meds: Current Medications Lactated Ringer's (Ringers, Lactated) 1,000 mls @ 125 mls/hr IV ASDIRECTED VICTOR MANUEL Last Admin: 07/19/20 06:49 Dose: 125 mls/hr Documented by: Discontinued Medications Fentanyl (Fentanyl 100 Mcg/2 Ml Sdv) Confirm Administered Dose 100 mcg .ROUTE .STK-MED ONE Stop: 07/19/20 06:54 Lidocaine (Lidocaine 2% 5 Ml Sdv) Confirm Administered Dose 5 ml .ROUTE .STK-MED ONE Stop: 07/19/20 06:55 Midazolam HCl (Midazolam 1 Mg/Ml 2 Ml Sdv) Confirm Administered Dose 2 mg .ROUTE .STK-MED ONE Stop: 07/19/20 06:54 Propofol (Propofol 200 Mg/20 Ml Sdv) Confirm Administered Dose 400 mg .ROUTE .STK-MED ONE Stop: 07/19/20 06:54
--- NOTE | 2020-07-19 09:33 | PCM.OPNOTE ---
- General Post-Op/Procedure Note Date of Surgery/Procedure: 07/19/20 Operative Procedure(s): EGD with biopsies. Colonoscopy Findings: likely submucosal lesion in fundus of stomach normal colonoscopy dictation number [id number] Pre Op Diagnosis: History of colon polyps. GERD, Dysphsia Post-Op Diagnosis: likely submucosal lesion in fundus of stomach. normal colonoscopy Primary Surgeon: Claude Mueller Pathology: EGD biopsies Condition: Good
--- NOTE | 2020-07-19 09:47 | PCM.POSTAN ---
POST ANESTHESIA ASSESSMENT - MENTAL STATUS Mental Status: Alert, Oriented - VITAL SIGNS Vital Signs: Last Vital Signs Temp 95.7 F L 07/19/20 06:47 Pulse 74 07/19/20 09:38 Resp 13 07/19/20 09:38 BP 127/82 07/19/20 09:38 Pulse Ox 100 07/19/20 09:38 - RESPIRATORY Respiratory Status: Respiratory Rate WNL, Airway Patent, O2 Saturation Stable - CARDIOVASCULAR CV Status: Pulse Rate WNL, Blood Pressure Stable - GASTROINTESTINAL GI Status: No Symptoms - POST OP HYDRATION Hydration Status: Adequate & Stable
--- NOTE | 2020-07-19 09:48 | PCM48HPAN ---
Post Anesthesia Note - EVALUATION WITHIN 48HRS OF ANESTHETIC Vital Signs in Normal Range: Yes Patient Participated in Evaluation: Yes Respiratory Function Stable: Yes Airway Patent: Yes Cardiovascular Function Stable: Yes Hydration Status Stable: Yes Pain Control Satisfactory: Yes Nausea and Vomiting Control Satisfactory: Yes Mental Status Recovered: Yes Vital Signs: Last Vital Signs Temp 95.7 F L 07/19/20 06:47 Pulse 74 07/19/20 09:38 Resp 13 07/19/20 09:38 BP 127/82 07/19/20 09:38 Pulse Ox 100 07/19/20 09:38
--- NOTE | 2020-07-19 15:10 | OR ---
SURGEON: LORENZO KANG MD DATE OF PROCEDURE: 07/19/2020 PREOPERATIVE DIAGNOSES: 1. History of colon polyps. 2. Gastroesophageal reflux disease. 3. Dysphagia. POSTOPERATIVE DIAGNOSES: 1. Likely submucosal lesion in the fundus of the stomach. 2. Normal colonoscopy. PRIMARY SURGEON: Lorenzo Kang MD ANESTHESIA: With anesthesiologist. EXTENT OF THE EGD: To at least the second part of the duodenum. EXTENT OF THE COLONOSCOPY: To the cecum. BOWEL PREP: Very good. LIMITATIONS: None. REASON FOR PROCEDURE: The patient is a pleasant 64-year-old female. Last colonoscopy was three years ago. She had polyps removed. She says she has colonoscopy every three years because of polyps. She denies any blood in stool. Denies any family history of colon cancer. The patient also says she has issues with heartburn. This is usually controlled with her PPIs, but lately they do not seem to be working as well, and needs Tums for breakthrough. She also says that she has some dysphagia with just like food getting stuck in her diaphragm. This happens with most food liquids except for she says cereal passes okay. OPERATIVE NARRATIVE: Physical exam was performed. The major risks and benefits associated with procedure were explained to the patient in detail. The patient verbalized understanding and was in agreement with the same. The patient was connected to the appropriate monitoring devices and IV was started. EKG, pulse oximetry, blood pressure, and capnography were monitored throughout the case. Oxygen and sedation were provided by the anesthesiologist. The patient was placed in left lateral decubitus position. Sedation began. After adequate sedation was achieved, the upper endoscope was advanced under direct visualization without difficulty in the upper GI tract. The anatomy of mucosa of the esophagus, GE junction, stomach, pylorus, and at least the second part of the duodenum were inspected. Duodenum appeared normal. The scope was brought up. Did get retrograde and antegrade view of the stomach. Some minimal gastritis started down mainly in the antrum. Biopsies of the antrum and pylorus were done to check for H pylori. Retroflex in the fundus and dome part of the stomach, the patient did have what could be 2.5 cm submucosal lesion. This potentially may be a lipoma. Did do several biopsies of the overlying mucosa. Scope was brought to the GE junction. GE junction was approximately 37 cm from her incisors. GE junction appeared intact with a good squamocolumnar junction. Scope was brought back to the stomach. Stomach was deinsufflated. There was good hemostasis at the biopsy sites. Scope was brought up through the esophagus. Esophagus appeared normal. Scope was completely removed and this part of the procedure was terminated. Gloves and scopes were changed. Rectal exam was done. No rectal masses or polyps were felt. Did have some minimal external hemorrhoids. Scope was then slowly withdrawn in a somewhat circular fashion looking at the color, texture, anatomy, and integrity of mucosa from the cecum to the anal canal. The patient did have a somewhat floppy colon, but was able to get to the cecum with some gentle external abdominal pressure. The cecum was identified by both visual and anatomic landmarks. Photographs were taken of the cecal cap. Scope was then slowly withdrawn in a somewhat circular fashion looking at the color, texture, anatomy, and integrity of mucosa from the cecum to the anal canal. The patient had some light liquid which was suctioned and irrigated out for an excellent look at the mucosa. The patient did have what looks beginning of some melanosis coli throughout the entire colon. Otherwise, no lesions or polyps were seen. The scope was retroflexed in the rectum. She had some noninflamed internal hemorrhoids. Scope was then completely removed and the procedure was terminated. ENDOSCOPIC DIAGNOSES: 1. Likely submucosal lesion in the fundus of the stomach. 2. Normal colonoscopy with the exception of what looked like the beginning of some melanosis coli. RECOMMENDATIONS: Followup colonoscopy discussed with the patient, but every three to five years since this one was normal. She will need one sooner if she develops signs and symptoms such as change in bowel habits or blood in the stool. We will await the pathology of her biopsies on EGD. Further investigation of this lesion will be needed, potentially a CT scan. Also to further evaluate her dysphagia, we should get an upper GI series. PAT / COLLEEN /[id number]
== END 2020-07-19 10:13 | disposition home or self-care (01) ==
LOC: MW.SDS 06:30
PROVIDERS: ATTEND Surgery
DX: Z12.11 Encounter for screening for malignant neoplasm of colon (principal); K21.9 Gastro-esophageal reflux disease without esophagitis; K29.50 Unspecified chronic gastritis without bleeding; K64.8 Other hemorrhoids; K31.89 Other diseases of stomach and duodenum; I10 Essential (primary) hypertension; R13.10 Dysphagia, unspecified; E66.9 Obesity, unspecified; G62.9 Polyneuropathy, unspecified; Z88.0 Allergy status to penicillin; Z79.899 Other long term (current) drug therapy; Z98.890 Other specified postprocedural states; Z68.30 Body mass index [BMI] 30.0-30.9, adult
CPT/HCPCS: 00813; 88305; 88342; J2250; J2704; J3010; J7120